=== PATIENT | male | born 1975 | race Caucasian/White ===

== ENCOUNTER → 2025-03-21 14:47 | Outpatient (BNVA) | payer OTHER, SELFPAY | PROVIDERS: Visit Provider Emergency Medicine | DX: B34.9 Viral infection, unspecified (principal) | CPT/HCPCS: 87426 ==

== ENCOUNTER → 2025-04-21 08:31 | Outpatient (BNVA) | payer OTHER, SELFPAY | PROVIDERS: Visit Provider Family Medicine | DX: I10 Essential (primary) hypertension (principal); D50.9 Iron deficiency anemia, unspecified; R35.1 Nocturia | CPT/HCPCS: 80053; 82728; 83550; 84153; 84443; 85025 ==